=== PATIENT | female | born 2000 | race Caucasian/White ===

== ENCOUNTER 2019-09-29 10:55 | Emergency (ER) | payer SELFPAY ==
[~2019-09-29] VITALS: Ht 162.6 cm; Wt 71.0 kg
[2019-09-29 11:16] VITALS: BP 150/93
--- NOTE | 2019-09-29 12:35 | NUR ---
MOTION STUDY TECHNICIAN: CALLED FOR ROOM, NO ANSWER
--- NOTE | 2019-09-29 13:00 | NUR ---
LEAN MANUFACTURING LEADER: CALLED FOR ROOM, NO ANSWER
--- NOTE | 2019-09-29 13:30 | NUR ---
CALLED FOR ROOM, NO ANSWER
== END 2019-09-29 13:32 | disposition left against medical advice (07) ==
LOC: ED 13:26
DX: R11.10 Vomiting, unspecified (principal); R05 Cough; R50.9 Fever, unspecified; Z53.21 Procedure and treatment not carried out due to patient leaving prior to being seen by health care provider